=== PATIENT | female | born 1995 | race African-American/Black ===

== ENCOUNTER 2023-12-03 10:35 | Outpatient (CLI) | payer OTHER | END 2023-12-03 11:53 | disposition home or self-care (01) | LOC: PRENATAL 10:35 | PROVIDERS: ATTEND Obstetrics & Gynecology Maternal & Fetal Medicine | DX: O26.849 Uterine size-date discrepancy, unspecified trimester (principal); O28.1 Abnormal biochemical finding on antenatal screening of mother; Z3A.26 26 weeks gestation of pregnancy ==

== ENCOUNTER 2024-01-27 09:40 | Outpatient (CLI) | payer OTHER | END 2024-01-27 09:41 | disposition home or self-care (01) | LOC: PRENATAL 09:40 | PROVIDERS: ATTEND Obstetrics & Gynecology Maternal & Fetal Medicine | DX: O26.849 Uterine size-date discrepancy, unspecified trimester (principal); O36.8199 Decreased fetal movements, unspecified trimester, other fetus; O28.1 Abnormal biochemical finding on antenatal screening of mother; O36.5990 Maternal care for other known or suspected poor fetal growth, unspecified trimester, not applicable or unspecified; Z3A.34 34 weeks gestation of pregnancy ==

== ENCOUNTER 2024-02-16 14:52 | Outpatient (CLI) | payer OTHER | END 2024-02-16 14:53 | disposition home or self-care (01) | LOC: PRENATAL 14:52 | PROVIDERS: ATTEND Obstetrics & Gynecology Maternal & Fetal Medicine | DX: O26.849 Uterine size-date discrepancy, unspecified trimester (principal); O36.8199 Decreased fetal movements, unspecified trimester, other fetus; O28.1 Abnormal biochemical finding on antenatal screening of mother; O36.5990 Maternal care for other known or suspected poor fetal growth, unspecified trimester, not applicable or unspecified; O41.00X0 Oligohydramnios, unspecified trimester, not applicable or unspecified; Z3A.36 36 weeks gestation of pregnancy ==